=== PATIENT | female | born 1960 | race Caucasian/White ===

== ENCOUNTER 2019-03-30 09:32 | Emergency (ER) | payer BC ==
[2019-03-30 09:53] VITALS: BP 159/92
--- NOTE | 2019-03-30 10:17 | ED ---
Throat Pain/Nasal Congestion - HPI Summary HPI Summary: Patient presents with URI symptoms 6 days. Started as chills on Monday night. These resolved and she developed nasal congestion the next day. She denies any gayatri rhinorrhea however suspects postnasal drip at night as she developed a cough on Monday night which has been persistent. Cough is mostly dry and she denies chest pain, difficulty breathing, wheezing, shortness of breath, swelling however coughing has impairing her ability to sleep at night and is triggering muscle tension around her neck/shoulders. She tried some over-the- counter cold and flu medication which seems to have helped however has caused her blood pressure to increase (most likely due to the pseudoephedrine). She denies sick contacts and is overall a healthy woman in general with no history of ENT nor pulmonary pathology. She does not smoke and does not expose any secondhand smoke. - History of Current Complaint Chief Complaint: UCRespiratory Time Seen by Provider: 03/30/19 09:44 Hx Obtained From: Patient - Allergies/Home Medications Allergies/Adverse Reactions: Allergies Allergy/AdvReac Type Severity Reaction Status Date / Time No Known Allergies Allergy Verified 03/30/19 09:48 Home Medications: Home Medications Hydrochlorothiazide TAB* [Hydrodiuril TAB*] 25 mg PO DAILY 03/30/19 [History Confirmed 03/30/19] Valsartan TAB* [Diovan TAB*] 40 mg PO BID 03/30/19 [History Confirmed 03/30/19] PMH/Surg Hx/FS Hx/Imm Hx Previously Healthy: Yes Endocrine/Hematology History: Denies: Hx Diabetes, Hx Thyroid Disease, Autoimmune Disease Cardiovascular History: Reports: Hx Hypertension - controlled w/ 3 meds Respiratory History: Denies: Hx Asthma, Hx Chronic Obstructive Pulmonary Disease (COPD), Hx Pneumonia GI History: Denies: Hx Ulcer, Other GI Disorders - liver dz History: Denies: Hx Acute Renal Failure, Hx Chronic Renal Failure - Surgical History Surgery Procedure, Year, and Place: 1992 tubal Infectious Disease History: No Infectious Disease History: Denies: Hx Hepatitis, Hx Human Immunodeficiency Virus (HIV), Traveled Outside the [place] in Last 30 Days - Social History Occupation: Employed Full-time Lives: With Family Alcohol Use: None Hx Substance Use: No Substance Use Type: Reports: None Hx Tobacco Use: No Smoking Status (MU): Never Smoked Tobacco Review of Systems Positive: Chills - Monday Eyes: Negative Positive: Other - sinus congestion. Negative: Sore Throat, Ear Ache, Nasal Discharge Cardiovascular: Negative Positive: Cough. Negative: Shortness Of Breath Gastrointestinal: Negative Negative: Abdominal Pain, Vomiting, Diarrhea, Nausea Genitourinary: Negative Negative: Arthralgia, Myalgia Skin: Negative Negative: Rash Positive: Headache - with muscle tension from coughing - limited Psychological: Normal All Other Systems Reviewed And Are Negative: Yes Physical Exam Triage Information Reviewed: Yes Vital Signs On Initial Exam: Initial Vitals Temp Pulse Resp BP Pulse Ox 96.8 F 79 16 159/92 94 03/30/19 09:50 03/30/19 09:50 03/30/19 09:50 03/30/19 09:50 03/30/19 09:50 Vital Signs Reviewed: Yes Appearance: Positive: Ill-Appearing - appears mildly fatigued but overall in good spirits, Obese Skin: Positive: Warm, Skin Color Reflects Adequate Perfusion, Dry - no rash Head/Face: Positive: Normal Head/Face Inspection Eyes: Positive: Normal, EOMI, Conjunctiva Clear. Negative: Conjunctiva Inflammed, Discharge ENT: Positive: Hearing grossly normal, Nasal congestion - mild, TMs normal - Rt , TM red - Lt w/ mild injection of ossicles - no fluid - ears and mastoids NTTP B/L, Uvula midline. Negative: Nasal drainage, TM bulging, TM dull, Tonsillar swelling, Tonsillar exudate, Trismus, Muffled voice, Hoarse voice, Dental tenderness, Sinus tenderness Neck: Positive: Supple, Nontender, No Lymphadenopathy Respiratory/Lung Sounds: Positive: Clear to Auscultation, Breath Sounds Present. Negative: Rales, Rhonchi, Stridor, Tracheal Deviation, Wheezes Cardiovascular: Positive: Normal, S1, S2. Negative: Leg Edema Left, Leg Edema Right Bowel Sounds: Positive: Present Musculoskeletal: Positive: Normal, Strength/ROM Intact Neurological: Positive: Normal, Sensory/Motor Intact, Alert, Oriented to Person Place, Time, CN Intact II-III Psychiatric: Positive: Normal - Kennard Coma Scale Best Eye Response: 4 - Spontaneous Best Motor Response: 6 - Obeys Commands Best Verbal Response: 5 - Oriented Coma Scale Total: 15 Diagnostics - Vital Signs Vital Signs Temp Pulse Resp BP Pulse Ox 03/30/19 09:50 96.8 F 79 16 159/92 94 - Laboratory Lab Statement: Any lab studies that have been ordered have been reviewed, and results considered in the medical decision making process. Re-Evaluation - Re-Evaluation First Eval Change: Improved - pulse ox 96% on RA EENT Course/Dx - Course Course Of Treatment: Suspect viral URI - offered conservative therapy with albuterol inhaler PRN at night to help with sleep. Advised f/u w/ PCP if sx persist and return for CXR or go to ED if worse. Offered CXR today however lack of concerning sx and pt declines, so will refrain. - Diagnoses Provider Diagnoses: URI (upper respiratory infection) Discharge - Sign-Out/Discharge Documenting (check all that apply): Patient Departure All imaging exams completed and their final reports reviewed: No Studies - Discharge Plan Condition: Stable Disposition: HOME Prescriptions: Albuterol HFA INHALER* [Ventolin HFA Inhaler*] 2 puff INH Q6H PRN #1 mdi PRN Reason: Cough Patient Education Materials: Upper Respiratory Infection (ED), Hypertension (ED ) Referrals: Jessica Vasquez DO [Doctor of Osteopathy] - Additional Instructions: You appear to have a viral URI - see education for details. You may also try the following for relief: *Nasal wash (netti pot or saline spray) & salt water throat gargles 2 x day *Drink you body weight in ounces of water every day *Sleep 8+ hours per night *Avoid Dairy and sugar *Hot herbal/decaf tea with lemon & honey *Chicken broth (preferably organic, free range chicken) *Keep home temperature regulated to avoid cold air triggering bronchospasm *Use cough drops/throat lozenges *Try a facial steam with or without eucalyptus essential oil or Chilo's Vapor rub for congestion *Avoid smoke, candles, perfumes, colognes, scented soaps/detergents , air fresheners and cleaning chemicals as these can cause airway irritation and trigger coughing Due to your blood pressure medications, you may take Coricidon HBP to avoid interactions. And if your cough continues to keep you up at night, you may try albuterol inhaler - sent to pharmacy. Request education on use before discharge from pharmacy. *If worse, return here or go to PCP. *If difficulty breathing, swallowing, severe headache or neck stiffness, vomiting, diarrhea, go to ED - Billing Disposition and Condition Condition: STABLE Disposition: Home
== END 2019-03-30 10:30 | disposition home or self-care (01) ==
LOC: UCEAST 09:32
DX: J06.9 Acute upper respiratory infection, unspecified (principal)
CPT/HCPCS: 99212; G0463